=== PATIENT | male | born 1955 | race African-American/Black ===

== ENCOUNTER 2021-06-01 21:18 | Emergency (ER) | payer OTHER ==
[~2021-06-01] VITALS: Ht 177.8 cm; Wt 90.7 kg
--- NOTE | 2021-06-01 22:34 | NUR ---
Dr Tovar into eval patient.
--- NOTE | 2021-06-01 23:30 | NUR ---
coding technician at bedside for exam.
[2021-06-02] LABS: *BILIRUBIN,URIN NEGATIVE (NEGATIVE); *BLOOD, URINE NEGATIVE (NEGATIVE); *CLARITY,URINE CLEAR (CLEAR); *COLOR,URINE YELLOW (YELLOW); *KETONES,URINE NEGATIVE (NEGATIVE); *UROBILINOGEN,URINE 0.2 E.U./dl (NORMAL); LEUKOCYTE ESTERASE ,URINE NEGATIVE (NEGATIVE); NITRITE, URINE NEGATIVE (NEGATIVE); UGLUCOSE NEGATIVE (NEGATIVE)
[2021-06-02] MEDS ORDERED: levoFLOXacin 750 MG/D5W 150 ML PIGGYBACK IV ONE
[2021-06-02] MEDS ORDERED: LEVO500T90 PO (00:42)
[2021-06-02] MEDS ORDERED: OXYC-128 PO (00:42)
[2021-06-02] MEDS ORDERED: IV NS 1000 ML 1,000 ML IV ONE (00:45)
[2021-06-02] MEDS ORDERED: levoFLOXacin 750MG/D5W 150 ML IV ONE (00:50)
--- NOTE | 2021-06-02 01:57 | NUR ---
Patient discharged to home in stable condition. Written and verbal after care instructions given. Patient verbalizes understanding of instructions. Stressed follow up or return to ER for worsening s/s. pt ambulatory with steady gait denies pain.
[2021-06-02 01:58] VITALS: BP 140/80
[2021-06-03 22:06] LABS: *GC NAA Negative (Negative)
[2021-06-05 15:07] LABS: *TRIC.VAG. NAA Negative (Negative)
== END 2021-06-02 01:59 | disposition home or self-care (01) ==
LOC: ER 21:23
DX: N45.1 Epididymitis (principal); K21.9 Gastro-esophageal reflux disease without esophagitis
CPT/HCPCS: 76870; 81003; 87491; 96365; 99284; J1956; A4663; J7030

== ENCOUNTER 2021-06-08 01:01 | Emergency (ER) | payer OTHER ==
[~2021-06-08] VITALS: Ht 177.8 cm; Wt 81.6 kg
[~2021-06-08 01:01] MED LIST: LEVO500T90 PO; OXYC-128 PO
--- NOTE | 2021-06-08 01:30 | NUR ---
PT AMBULATED TO ER WI C/O RT TESTICULAR PAIN. PT WAS SEEN 10 DAYS AGO AND PROVIDED ATB FOR SAME COMPLAINT. A/O X4, NO SOB OR LABORED BREATHING. DENIES ANY CP/PRESSURE. NO N/V.
[2021-06-08 02:15] LABS: *BILIRUBIN,URIN NEGATIVE (NEGATIVE); *BLOOD, URINE NEGATIVE (NEGATIVE); *CLARITY,URINE CLEAR (CLEAR); *COLOR,URINE YELLOW (YELLOW); *KETONES,URINE NEGATIVE (NEGATIVE); *UROBILINOGEN,URINE 0.2 E.U./dl (NORMAL); LEUKOCYTE ESTERASE ,URINE NEGATIVE (NEGATIVE); NITRITE, URINE NEGATIVE (NEGATIVE); PH,URINE 5.5 (5.0-8.0); UGLUCOSE NEGATIVE (NEGATIVE)
[2021-06-08] MEDS ORDERED: IBUPROFEN 800 MG TABLET PO ONE (02:45)
[2021-06-08] MEDS ORDERED: IBUPROFEN 800 MG TABLET ONE (02:49)
[2021-06-08] MEDS ORDERED: CEFTRIAXONE 500 MG VIAL IM ONE (03:00)
[2021-06-08] MEDS ORDERED: CEFTRIAXONE 500 MG VIAL ONE (03:02)
[2021-06-08] MEDS ORDERED: DOXY-326 PO (03:03)
--- NOTE | 2021-06-08 03:05 | NUR ---
Patient discharged to home in stable condition. Written and verbal after care instructions given. Patient verbalizes understanding of instructions. Stressed follow up or return to ER for worsening s/s. Steady gait, denies any pain/discomfort upon discharge.
[2021-06-08 03:55] VITALS: BP 130/76
[2021-06-10 01:06] LABS: *GC NAA Negative (Negative)
[2021-06-10 21:06] LABS: *TRIC.VAG. NAA Negative (Negative)
== END 2021-06-08 03:10 | disposition home or self-care (01) ==
LOC: ER 01:03
DX: N45.1 Epididymitis (principal); K21.9 Gastro-esophageal reflux disease without esophagitis; Z79.2 Long term (current) use of antibiotics; Z79.899 Other long term (current) drug therapy
CPT/HCPCS: 81003; 87491; 96372; 99283; J0696; J3490; A4663

== ENCOUNTER 2022-05-28 12:45 | Emergency (ER) | payer OTHER ==
[~2022-05-28] VITALS: Ht 177.8 cm; Wt 90.7 kg
[~2022-05-28 12:45] MED LIST changes: +DOXY-326 PO
[2022-05-28 13:30] LABS: HEMATOCRIT 41.7 % (36.7-47.1); MEAN CORPUSCULAR HEMOGLOBIN 31.7 uug (23.8-33.4); MEAN CORPUSCULAR VOLUME 93.7 fL (73.0-96.2); PLATELET COUNT (AUTO) 297 K/uL (152-348)
[2022-05-28 13:33] LABS: *BILIRUBIN,URIN NEGATIVE (NEGATIVE); *BLOOD, URINE NEGATIVE (NEGATIVE); *CLARITY,URINE CLEAR (CLEAR); *COLOR,URINE YELLOW (YELLOW); *KETONES,URINE NEGATIVE (NEGATIVE); *UROBILINOGEN,URINE 0.2 E.U./dl (NORMAL); LEUKOCYTE ESTERASE ,URINE NEGATIVE (NEGATIVE); NITRITE, URINE NEGATIVE (NEGATIVE); PH,URINE 6.5 (5.0-8.0); UGLUCOSE NEGATIVE (NEGATIVE)
[2022-05-28 13:40] LABS: LIPASE 103 U/L (73-393)
[2022-05-28 13:48] LABS: ALANINE AMINOTRANSFERASE 27 U/L (16-63); ALKALINE PHOSPHATASE 57 U/L (50-136); ASPARTATE AMINOTRANSFERASE 16 U/L (15-37); BILIRUBIN,DIRECT 0.1 mg/dL (0.0-0.2); BILIRUBIN,TOTAL 0.5 mg/dL (0.2-1.0); CARBON DIOXIDE 28 mmol/L (21-32); CHLORIDE 103 mmol/L (98-107); CREATININE 1.8 mg/dL (0.6-1.3); GLUCOSE 101 mg/dL (74-106); POTASSIUM 3.4 mmol/L (3.5-5.1); TOTAL PROTEIN, SERUM 7.2 g/dL (6.4-8.2); UREA NITROGEN, BLOOD 19 mg/dL (7-18)
--- NOTE | 2022-05-28 14:30 | NUR ---
Patient complained of abdominal pain. Dr. Segovia notified.
[2022-05-28] MEDS ORDERED: DOXYCYCLINE HYCLATE 100 MG TABLET ONE (14:44)
[2022-05-28] MEDS ORDERED: DICYCLOMINE HCL LIQ 10 MG/5 ML UDC ONE (14:44)
[2022-05-28] MEDS ORDERED: LIDOCAINE HCL 1% 20 ML VIAL ONE (14:44)
[2022-05-28] MEDS ORDERED: CEFTRIAXONE 500 MG VIAL ONE (14:44)
[2022-05-28] MEDS ORDERED: DOXYCYCLINE HYCLATE 100 MG TABLET PO ONE (14:45)
[2022-05-28] MEDS ORDERED: DICYCLOMINE HCL 10 MG CAPSULE PO SCH (14:45)
[2022-05-28] MEDS ORDERED: CEFTRIAXONE 500 MG VIAL IM ONE (14:45)
[2022-05-28] MEDS ORDERED: DICY10CA13 PO (14:46)
[2022-05-28] MEDS ORDERED: DOXY-326 PO (14:46)
[2022-05-28] MEDS ORDERED: ONDA4TAB11 PO (14:46)
--- NOTE | 2022-05-28 15:00 | NUR ---
Patient discharged to home in stable condition. Written and verbal after care instructions given. Patient verbalizes understanding of instructions. Stressed follow up or return to ER for worsening s/s.
[2022-05-28 15:34] VITALS: BP 132/91
[2022-05-30 01:06] LABS: *TRIC.VAG. NAA Negative (Negative)
[2022-05-31 01:06] LABS: *GC NAA Negative (Negative)
== END 2022-05-28 15:00 | disposition home or self-care (01) ==
LOC: ER 12:45
DX: R10.9 Unspecified abdominal pain (principal); R19.7 Diarrhea, unspecified; Z20.2 Contact with and (suspected) exposure to infections with a predominantly sexual mode of transmission; Z20.822 Contact with and (suspected) exposure to COVID-19; K21.9 Gastro-esophageal reflux disease without esophagitis; E86.0 Dehydration
CPT/HCPCS: 99285; 74176; 71045; 87426; 80076; 80048; 81003; 83690; 85025; 84484; 36415; 93005; 96372; 87040; 87491; J0696; J3490; A4663